=== PATIENT | female | born 1980 | race Two or more races ===

== ENCOUNTER 2024-01-21 15:31 | Emergency (ER) | payer OTHER ==
[~2024-01-21] VITALS: Ht 170.2 cm; Wt 62.0 kg
[2024-01-21 15:59] LABS: Urine Bacteria None Seen /hpf (None Seen)
[2024-01-21 16:32] LABS: Urine Blood Negative /uL (Negative); Urine Clarity Clear (Clear); Urine Color Colorless (Yellow); Urine Protein, UAD Negative (Negative); Urine Specific Gravity 1.006 (1.001-1.035); Urine Urobilinogen Normal (Negative); Urine WBC <1 /hpf (0 - 5)
--- NOTE | 2024-01-21 16:33 | DVH ---
TRANSABDOMINAL PELVIC ULTRASOUND HISTORY: pelvic pain TECHNIQUE: Multiple tranabdominal sonographic images of the pelvis were obtained. FINDINGS: The uterus measures 8.9 x 4.4 x 5.5 cm. The uterine myometrium appears heterogeneous. There is likel y 2.8 x 2.2 cm left body leiomyoma.. The endometrial stripe measures 9 mm . Right ovary measures 2.3 x 1.5 x 3.0 cm. Left ovary measures 3.1 x 2.5 x 2.9 cm. There is a 2.1 cm do minant follicle in the left ovary. The ovaries otherwise appear within normal limits with appropriate vascular flow. There is no evidence of an adnexal mass. There is no free fluid in the cul-de-sac. IMPRESSION: 1. Heterogeneous uterine myometrium with likely 2.8 cm left body leiomyoma. HS:Y
[2024-01-21 18:29] LABS: Chloride 104 mmol/L (98-107); Sodium 138 mmol/L (136-145)
[2024-01-21 18:30] LABS: Anion Gap 6 (5-15); Carbon Dioxide 28 mmol/L (20-31)
[2024-01-21 18:35] LABS: Blood Urea Nitrogen 11 mg/dL (9-23); Glucose 87 mg/dL (74-106)
[2024-01-21 18:39] LABS: Calcium 10.5 mg/dL (8.7-10.4)
[2024-01-21 19:49] LABS: Basophils # (auto) 0 10 ^3/uL (0-0.2); Basophils % (auto) 0.4 % (0.0-2.0); Eosinophils # (auto) 0.1 10 ^3/uL (0-0.8); Eosinophils % (auto) 1.9 % (0.0-7.0); Hematocrit 39.5 % (36.0-46.0); Hemoglobin 13.6 g/dL (12.2-16.2); Lymphocytes # (auto) 1.6 10 ^3/uL (0.4-5.4); Lymphocytes % (auto) 24.9 % (10.0-50.0); Mean Corpuscular Hgb Conc. 34.3 g/dL (32.0-36.0); Mean Corpuscular Volume 90.3 fL (80.0-100.0); Monocytes # (auto) 0.5 10 ^3/uL (0-1.3); Monocytes % (auto) 7.1 % (0.0-12.0); Neutrophils # (auto) 4.3 10 ^3/uL (1.6-8.6); Neutrophils % (auto) 65.7 % (37.0-80.0); Nucleated Red Blood Cells % 0.1 %; Platelet Count (auto) 393 10^3/uL (140-450); Red Blood Cells 4.38 10^6/uL (4.0-5.20); Red Cell Distribution Width 14.7 % (11.8-14.3); White Blood Cell 6.5 10^3/uL (4.4-10.8)
--- NOTE | 2024-01-21 20:15 | ED.PDOC ---
History of Present Illness HPI Comments 43 y/o F presents with c/o non-radiating, right-pelvic pain and "tissue passage" from her vaginal area, today. Patient reports on having a uterine polyp surgically removed on 01/19/24 and has been having pain since, with additional onset of "tissue passage," today. 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 ) Family History Family History: Unknown Social History Smoker: Non-Smoker Alcohol: Denies ETOH Use Drugs: Denies Drug Use Lives In: Home Constitutional: denies: chills, diaphoresis, fatigue, fever, malaise, sweats, weakness, others EENTM: denies: blurred vision, double vision, ear bleeding, ear discharge, ear drainage, ear pain, ear ringing, eye pain, eye redness, hearing loss, mouth pain, mouth swelling, nasal discharge, nose bleeding, nose congestion, nose pain, photophobia, tearing, throat pain, throat swelling, voice changes, others Respiratory: denies: cough, hemoptysis, orthopnea, SOB at rest, shortness of breath, SOB with excertion, stridor, wheezing, others Cardiovascular: denies: chest pain, dizzy spells, diaphoresis, Dyspnea on exertion, edema, irregular heart beat, left arm pain, lightheadedness, palpitat ions, PND, syncope, others Gastrointestinal: denies: abdomen distended, abdominal pain, blood streaked bow els, constipated, diarrhea, dysphagia, difficulty swallowing, hematemesis, melena, nausea, poor appetite, poor fluid intake, rectal bleeding, rectal pain, vomiting, others Genitourinary: reports: others (right-pelvic pain; vaginal "tissue passage"); denies: abnormal vagina bleeding, burning, dyspareunia, dysuria, flank pain, frequency, hematuria, incontinence, pain, , vagina discharge, urgency Neurological: denies: dizziness, fainting, headache, left sided numbness, left sided weakness, numbness, paresthesia, pre-existing deficit, right sided numbness, right sided weakness, seizure, speech problems, tingling, tremors, weakness, others Musculoskeletal: denies: back pain, gout, joint pain, joint swelling, muscle pain, muscle stiffness, neck pain, others Integumetry: denies: bruises, change in color, change in hair/nails, dryness, laceration, lesions, lumps, rash, wounds, others Allergic/Immunocompromised: denies: Difficulty Healing, Frequent Infections, Hives, Itching, others Hematologic/Lymphatic: denies: anemia, blood clots, easy bleeding, easy bruising, swollen glands, others Endocrine: denies: excessive hunger, excessive sweating, excessive thirst, excessive urination, flushing, intolerance to cold, intolerance to heat, unexplained weight gain, unexplained weight loss, others Psychiatric: denies: anxiety, bipolar disorder, depression, hopeless, panic disorder, schizophrenia, sleepless, suicidal, others All Other Systems: Reviewed and Negative Physical Exam General Appearance: No Apparent Distress, Normal HEENT: Normal ENT Inspection, Pharynx Normal, TMs Normal Neck: Full Range of Motion, Non-Tender, Normal, Normal Inspection Respiratory: Chest Non-Tender, Lungs Clear, No Accessory Muscle Use, No Respiratory Distress, Normal Breath Sounds Cardiovascular: No Edema, No JVD, No Murmur, No Gallop, Normal Peripheral Pulses, Regular Rate/Rhythm Breast Exam: Deferred Gastrointestinal: No Organomegaly, Non Tender, No Pulsatile Mass, Normal Bowel Sounds, Soft Genitalia: Deferred Pelvic: Deferred Rectal: Deferred Extremities: No calf tenderness, Normal capillary refill, Normal inspection, Normal range of motion, Non-tender, No pedal edema Musculoskeletal : Apperance: Normal Neurologic: Alert, horticultural manager II-XII nml as Tested, No Motor Deficits, Normal Affect, Normal Mood, No Sensory Deficits Cerebellar Function: Normal Reflexes: Normal Skin: Dry, Normal Color, Warm Lymphatic: No Adenopathy Was a procedure done? Was a procedure done?: No Differential Dx Considerations may include: post-op complications, PID, UTI, vaginitis. post op infection. post op retained tissue passage X-Ray, Labs, Meds, VS Vital Signs Date Time Temp Pulse Resp B/P (MAP) Pulse Ox O2 Delivery O2 Flow Rate FiO2 01/21/24 20:50 97.9 85 15 143/90 (107) 98 97.9 01/21/24 15:52 99.1 96 18 171/94 (119) 98 Lab Test 01/21/24 19:25 01/21/24 18:00 01/21/24 15:59 Range/Units White Blood Count 6.5 4.4-10.8 10^3/uL Red Blood Count 4.38 4.0-5.20 10^6/uL Hemoglobin 13.6 12.2-16.2 g/dL Hematocrit 39.5 36.0-46.0 % Mean Corpuscular Volume 90.3 80.0-100.0 fL Mean Corpuscular Hemoglobin 31.0 28.0-32.0 pg Mean Corpuscular Hemoglobin Concent 34.3 32.0-36.0 g/dL Red Cell Distribution Width 14.7 H 11.8-14.3 % Platelet Count 393 140-450 10^3/uL Mean Platelet Volume 6.5 L 6.9-10.8 fL Neutrophils (%) (Auto) 65.7 37.0-80.0 % Lymphocytes (%) (Auto) 24.9 10.0-50.0 % Monocytes (%) (Auto) 7.1 0.0-12.0 % Eosinophils (%) (Auto) 1.9 0.0-7.0 % Basophils (%) (Auto) 0.4 0.0-2.0 % Neutrophils # (Auto) 4.3 1.6-8.6 10 ^3/uL Lymphocytes # (Auto) 1.6 0.4-5.4 10 ^3/uL Monocytes # (Auto) 0.5 0-1.3 10 ^3/uL Eosinophils # (Auto) 0.1 0-0.8 10 ^3/uL Basophils # (Auto) 0 0-0.2 10 ^3/uL Nucleated Red Blood Cells 0.1 % Sodium Level 138 136-145 mmol/L Potassium Level 4.0 3.5-5.1 mmol/L Chloride Level 104 98-107 mmol/L Carbon Dioxide Level 28 20-31 mmol/L Anion Gap 6 5-15 Blood Urea Nitrogen 11 9-23 mg/dL Creatinine 1.00 0.550-1.02 mg/dL Glomerular Filtration Rate Calc 72 >90 mL/min BUN/Creatinine Ratio 11.0 10.0-20.0 Serum Glucose 87 74-106 mg/dL Calcium Level 10.5 H 8.7-10.4 mg/dL Beta HCG, Quantitative 1.9 1.5-4.2 mIU/mL Urine Color Colorless Yellow Urine Clarity Clear Clear Urine pH 6.0 5.0-9.0 Urine Specific [place] 1.006 1.001-1.035 Urine Protein Negative Negative Urine Ketones Negative Negative Urine Blood Negative Negative /uL Urine Nitrite Negative Negative Urine Bilirubin Negative Negative Urine Urobilinogen Normal Negative mg/dL Urine Leukocyte Esterase Negative Negative /uL Urine RBC <1 0 - 4 /hpf Urine WBC <1 0 - 5 /hpf Urine Squamous Epithelial Cells None seen <5 /hpf Urine Bacteria None seen None Seen /hpf Urine Glucose Normal Normal mg/dL [place] [address] Ph: [phone] DIAGNOSTIC IMAGING Diagnostic Imaging Report : [id number] Signed PATIENT: ELSA DENG ACCT: [id number] UNIT: [id number] : 1980 LOC: ER ROOM / BED: / AGE / SEX: 43 / F ADM STATUS: REG ER SERVICE [id number] ORDERING PHYSICIAN: HAZEL VALIENTE MD PROCEDURE(s): PELUS - PELVIC REASON: pelvic pain ORDER NUMBER(s): [id number], ACCESSION NUMBER(s): [id number] TRANSABDOMINAL PELVIC ULTRASOUND HISTORY: pelvic pain TECHNIQUE: Multiple tranabdominal sonographic images of the pelvis were obtained. FINDINGS: The uterus measures 8.9 x 4.4 x 5.5 cm. The uterine myometrium appears heterogeneous. There is likely 2.8 x 2.2 cm left body leiomyoma.. The endometrial stripe measures 9 mm . Right ovary measures 2.3 x 1.5 x 3.0 cm. Left ovary measures 3.1 x 2.5 x 2.9 cm. There is a 2.1 cm dominant follicle in the left ovary. The ovaries otherwise appear within normal limits with appropriate vascular flow. There is no evidence of an adnexal mass. There is no free fluid in the cul-de-sac. IMPRESSION: 1. Heterogeneous uterine myometrium with likely 2.8 cm left body leiomyoma. HS:Y ATED BY: THOMAS LEDBETTER MD DICTATED DATE/TIME: 01/21/241631 SIGNED BY: THOMAS LEDBETTER MD SIGNED DATE/TIME: 01/21/241631 CC: Time of 1ST Reevaluation: 20:30 Reevaluation 1ST: Unchanged Patient Education/Counseling: Diagnosis, Treatment, Need For Follow Up Family Education/Counseling: No Family Present Additional Information pt has bibroid seen on ct and US. otherwise, thre are no abnormalities. some fibrinoid tissue may be passing from the procedure. 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 Electronically submitted by Brian Goldman [email or web address]). HAZEL VALIENTE MD Jan 21, 2024 20:15
[2024-01-21 20:50] VITALS: BP 143/90; TEMP 97.9
--- NOTE | 2024-01-21 21:14 | DVH ---
CLINICAL HISTORY: pelvic pain, post procedure TECHNIQUE: CT of the abdomen and pelvis was performed without intravenous contrast. This exam was per formed according to our departmental dose optimization program. Up-to-date CT equipment and radiation dose reduction techniques are utilized as appropriate. CTDI: [CTDIvol] DLP: 336.23 WID: COMPARISON: None FINDINGS: Lower Thorax: Partially imaged bilateral breast implants, otherwise unremarkable Liver and Biliary system: Unremarkable. Spleen: Unremarkable. Adrenal Glands and Kidneys: lobulation of the kidneys. No hydronephrosis or right nephrolithias is. Punctate nonobstructing left renal calculus. Normal adrenal glands. Pancreas and Retroperitoneum: Unremarkable. Aorta and Major Vessels: Aortoiliac vessels are normal in caliber containing mild calcified atheroscl erotic plaque. Bowel, Mesentery and Peritoneal space: Normal caliber small and large bowel. Normal appendix. No free air or loculated fluid collection. There is no mesenteric lymphadenopathy Pelvis: Bilateral tubal ligation clips. There is a cystic lesion in the left ovary measuring 2.5 cm o n series 2, image 73. The right ovary is grossly unremarkable tiny hyperdensity in the region of the lower uterine segment/ cervix ( series 2, image 76 ) urinary bladder is mildly distended. There is n o pelvic lymphadenopathy Abdominal wall and Osseous Structures: Multilevel lower thoracic and lumbar spondylosis with marked d egenerative disc space narrowing at L5-S1. No destructive osseous lesion IMPRESSION: 1. No bowel obstruction, fluid collection, or free air. Normal appendix. 2. Punctate nonobstructing left renal calculus 3. Bilateral tubal ligation clips and left ovarian cyst. 4. Tiny hyperdensity in the region of the lower uterine segment/ cervix which could reflect blood pro ducts or postoperative if there is a recent history of procedure involving the uterus. Correlate wit h clinical and surgical history.
[2024-01-21 22:20] VITALS: PULSE 85; RESP 15; O2SAT 98
== END 2024-01-21 22:24 | disposition home or self-care (01) ==
LOC: ER 15:31
DX: D21.9 Benign neoplasm of connective and other soft tissue, unspecified (principal); R10.2 Pelvic and perineal pain
CPT/HCPCS: 36415; 74176; 76856; 80048; 81001; 84702